=== PATIENT | female | born 1985 | race Caucasian/White ===

== ENCOUNTER 2016-10-27 18:43 | Outpatient (CLI) | payer MEDICAID ==
[~2016-10-27] VITALS: Ht 157.5 cm; Wt 74.0 kg
[2016-10-27 19:05] VITALS: BP 121/64; PULSE 67; Ht 157.5 cm; Wt 74.0 kg
[2016-10-27] MEDS ORDERED: PRENAT PO (19:07)
--- NOTE | 2016-10-27 20:10 | RADRPT ---
PROCEDURE: US OB biophysical profile. CLINICAL INDICATION: decreased movements, PTL TECHNIQUE: Multiple sonographic images of the pelvis were obtained. The images were reviewed on a PACS workstation. COMPARISON: No prior studies are available for comparison. FINDINGS: There is a single viable intrauterine gestation. Cardiac activity is present with 144 beats per min [place]. There is a vertex presentation. The placenta is anterior. There is no evidence of placental abruption. There is a normal amount of amniotic fluid with an ROXANNE = 15.8 cm. Biophysical profile: movement 2/2 tone 2/2. breathing 2/2 ROXANNE 2/2 Total 01/04 RPTAT: AA . IMPRESSION: Normal biophysical profile. . .Abdirashid Martines MD, Date Time Electronically viewed and signed by .Abdirashid Martines MD, MD on 10/27/2016 20:10 .S/
--- NOTE | 2016-10-27 20:15 | RADRPT ---
PROCEDURE: US OB AND ULTRASOUND CERVIX. CLINICAL INDICATION: Size and dates , PTL TECHNIQUE: Multiple sonographic images of the pelvis and gravid uterus were obtained. The images were reviewed on a PACS workstation. Transvaginal images of the cervix were also obtained. COMPARISON: No prior studies are available for comparison. FINDINGS: The cervix has a length of 3.6 cm. There is a small amount of fluid within the cervix. There is a single viable intrauterine gestation. Cardiac activity is present with 142 beats per min [place]. There is a vertex presentation. The placenta is anterior. There is no evidence for an abruption or placenta previa. Measurements were made in order to determine age. The results are as follows: BPD =8.2 cm HC =30.4 cm AC =30.6 cm FL =6.4 cm Estimated gestational age of approximately 33 weeks and 4 days based on ultrasound measurements. Clinical age: 33 weeks and 0 days. The estimated date of delivery is 12/11/2016, based on ultrasound measurements. The EFW = 2305 g, 70%, based on LMP age. RPTAT: AA IMPRESSION: Single viable intrauterine gestation of approximately 33 weeks and 4 days based on ultrasound measu rements. Cervix has a length of 3.6 cm with a small amount of fluid within it. .Abdirashid Martines MD, Date Time Electronically viewed and signed by .Abdirashid Martines MD, MD on 10/27/2016 20:15 .S/
[2016-10-27 20:38] LABS: ADD UMIC YES; URINE BILIRUBIN (Dip) NEGATIVE (NEGATIVE); URINE BLOOD (Dip) TRACE (NEGATIVE); URINE COLOR LT. YELLOW (YELLOW); URINE GLUCOSE (Dip) NEGATIVE (NEGATIVE); URINE KETONES (Dip) NEGATIVE (NEGATIVE); URINE LEUKOCYTE ESTERASE (Dip) 3+ (NEGATIVE); URINE NITRITE (Dip) NEGATIVE (NEGATIVE); URINE TOTAL PROTEIN (Dip) NEGATIVE (NEGATIVE); URINE UROBILINOGEN (Dip) 0.2 E.U./dL (0.1-1.0)
[2016-10-27 20:51] LABS: SQUAMOUS EPITHELIAL CELL,UR MANY; URINE RBCS 0-2 /HPF (0)
--- NOTE | 2016-10-27 21:51 | QN ---
Documentation Comment OB TRUAGE 31 y/o at 33 weeks with c/o decreased movement. Patient denies any pain, leakage of fluid or vaginal bleeding. Afebrile VSS NST Category I BPP 01/04 cervical length 3.6 D/C home. FRANCISCO JAVIER NELSON MD October 27, 2016 21:51
--- NOTE | 2016-10-27 22:50 | TRIAGE ---
OB Triage Datetime Report Generated by CPN: 10/27/2016 22:50 Datetime: 10/27/2016 19:02 Stage of : OB Triage Assessment Type: Triage Maternal Assessment Level of Consciousness: Fully Conscious DTR's/Clonus: DTRs 2+; No Clonus Headache: Denies Blurred Vision: No Respiratory Effort: Unlabored; Regular Rhythm; Equal Expansion Breath Sounds, Left: Clear and Equal Breath Sounds, Right: Clear and Equal Nausea/Vomiting: Denies RUQ Epigastric Pain: Denies Facial Edema: None Temperature Route: Axillary Fall Risk Assessment History of Falling: (0) No Secondary Diagnosis: (0) No Ambulatory Aid: (0) Bedrest/Nurse Assist IV Therapy: (0) No Gait: (0) Normal/Bedrest/Immobile Mental Status: (0) Oriented to Own Ability Fall Score: 0 Fall Risk Score Definition: No Risk: No action required Labor Evaluation Frequency: X2 Monitor Mode: External Duration (sec)2399: 50-100 Quality: Mild Pattern: Normal: <= 5 Contractions in 10 Minutes Resting Tone [place]: Relaxed Contraction Comments: DENIES FEELING Heart Rate FHR Baseline Rate: 135 Monitor Mode: External US Variability: Moderate 6-25 bpm Decelerations: None Pain Assessment Pain Scale: 0 Pain Presence: None/Denies Pain Goal: 3 Pain Relief Measures: Comfort Measures Datetime: 10/27/2016 19:00 Time of Arrival: 10/27/2016 18:35 EGA: 33.0 Arrived By: Ambulatory Arrived From: Home Chief Complaint: C/O DFM SINCE YESTERDAY, DENIES BLEEDING, LEAKING OF FLUID OR UC'S Movement: Decreased Contractions: Denies/Absent Rupture of Membranes: Denies Vaginal Bleeding: None Vaginal Discharge: Denies Recent Sexual Intercouse: Denies Abdominal Trauma: Not Applicable Patient Complaints: None Time Provider Notified: 10/27/2016 19:35 Provider Notified: Dr Jackson Initial Plan: MONITOR, BPP/ROXANNE
== END 2016-10-27 21:55 | disposition home or self-care (01) ==
LOC: OBT 18:43 → L-D 18:44 → OBT 21:55
PROVIDERS: ATTEND Obstetrics & Gynecology
DX: O36.8130 Decreased fetal movements, third trimester, not applicable or unspecified (principal); Z3A.30 30 weeks gestation of pregnancy
CPT/HCPCS: 76815; 76817; 76818; 81001; Z7500; G0463

== ENCOUNTER 2016-12-05 09:13 | Outpatient (CLI) | payer MEDICAID ==
[~2016-12-05] VITALS: Ht 154.9 cm; Wt 76.0 kg
[~2016-12-05 09:13] MED LIST: PRENAT PO
[2016-12-05 09:25] VITALS: BP 119/66; PULSE 78; RESP 16; Ht 154.9 cm; Wt 76.0 kg
--- NOTE | 2016-12-05 11:04 | RADRPT ---
PROCEDURE: OB ultrasound for biophysical profile CLINICAL INDICATION: . TECHNIQUE: Multiple sonographic images of the pelvis were obtained. Transabdominal view of the gr avid uterus are available for review. The images were reviewed on a PACS workstation. COMPARISON: 10/27/2016 FINDINGS: breathing movement = 2/2 tone = 2/2 motion = 2/2 ROXANNE = 2/2 ROXANNE = 11.1 cm Single live intrauterine with cardiac activity. Heart rate equals 161 bpm. IMPRESSION: 1. Single viable intrauterine gestation. 2. Biophysical profile = 8/8. 3. ROXANNE = 11.1 cm. RPTAT: QQ .David Nichols MD, Date Time Electronically viewed and signed by .David Nichols MD, on 12/05/2016 11:04 .Cam/
--- NOTE | 2016-12-05 15:28 | QN ---
Documentation Comment 31 y/o LAURENT 12/15/2016 with decreased movement. Afebrile VSS NST Category I BPP 01/04 Stable D/C home Follow up NST and BPP on 12/06/2016. kick count. FRANCISCO JAVIER NELSON MD Dec 05, 2016 15:28
== END 2016-12-05 16:00 | disposition home or self-care (01) ==
LOC: OBT 09:13 → L-D 09:14 → OBT 16:00
PROVIDERS: ATTEND Obstetrics & Gynecology
DX: O36.8130 Decreased fetal movements, third trimester, not applicable or unspecified (principal); Z3A.32 32 weeks gestation of pregnancy
CPT/HCPCS: 76818; Z7500; G0463

== ENCOUNTER 2016-12-06 14:46 | Outpatient (CLI) | payer MEDICAID ==
[~2016-12-06] VITALS: Ht 154.9 cm; Wt 78.9 kg
[2016-12-06 15:20] VITALS: BP 119/74; PULSE 75; Ht 154.9 cm; Wt 78.9 kg
--- NOTE | 2016-12-06 15:40 | RADRPT ---
PROCEDURE: US OB biophysical profile. CLINICAL INDICATION: evaluation TECHNIQUE: Multiple sonographic images of the pelvis were obtained. The images were reviewed on a PACS workstation. COMPARISON: No prior studies are available for comparison. FINDINGS: There is a single viable intrauterine gestation. Cardiac activity is present with 139 beats per min [place]. There is a vertex presentation. The placenta is anterior. There is no evidence of placental abruption. There is a normal amount of amniotic fluid with an ROXANNE = 12.4 cm. Biophysical profile: movement 2/2 tone 2/2. breathing 2/2 ROXANNE 2/2 Total 01/04 RPTAT: AA . IMPRESSION: Normal biophysical profile. Physician Reece Date Time Electronically viewed and signed by Physician Reece on 12/06/2016 15:40 /
--- NOTE | 2016-12-06 17:23 | QN ---
Documentation Comment g1 iup 36 weeks dfm vss us wnl nst reactive a/p iup 38 weeks dmf fu with obgyn GISSELLE Hinkle MD Dec 06, 2016 17:23
== END 2016-12-06 17:15 | disposition home or self-care (01) ==
LOC: OBT 14:46 → L-D 14:46 → OBT 17:15
PROVIDERS: ATTEND Obstetrics & Gynecology
DX: O36.8130 Decreased fetal movements, third trimester, not applicable or unspecified (principal); Z3A.38 38 weeks gestation of pregnancy
CPT/HCPCS: 76818; Z7500; G0463

== ENCOUNTER 2016-12-09 09:40 | Inpatient (IN) | payer MEDICAID ==
[~2016-12-09] VITALS: Ht 157.5 cm; Wt 75.7 kg
[2016-12-09 09:53] VITALS: Ht 157.5 cm; Wt 75.7 kg
[2016-12-09 09:54] VITALS: BP 124/64; PULSE 83; RESP 18
--- NOTE | 2016-12-09 10:55 | RADRPT ---
PROCEDURE: OB ultrasound for biophysical profile CLINICAL INDICATION: Decreased movement TECHNIQUE: Multiple sonographic images of the pelvis were obtained. Transabdominal views of the g ravid uterus are available for review. The images were reviewed on a PACS workstation. COMPARISON: Biophysical profile dated 12/06/2016 FINDINGS: breathing movement = 2/2 tone = 2/2 motion = 2/2 ROXANNE = 2/2 ROXANNE = 9.7 cm Single live intrauterine with cardiac activity of 166 bpm. position is cephal ic. The placenta is anterior. IMPRESSION: 1. Single live intrauterine gestation. 2. Biophysical profile = 8. 3. ROXANNE = 9.7 cm. RPTAT: HH .Blessing Sena MD, Date Time Electronically viewed and signed by .Blessing Sena MD, on 12/09/2016 10:55 .G/
[2016-12-09] MEDS ORDERED: IBUPROFEN 600 MG TAB PO PRN (11:30)
[2016-12-09] MEDS ORDERED: MISOPROSTOL 200 MCG TAB PR PRN (11:30)
[2016-12-09] MEDS ORDERED: CARBOPROST 250 MCG INJ IM PRN (11:30)
[2016-12-09] MEDS ORDERED: METHYLERGONOVINE 0.2 MG INJ IM PRN (11:30)
[2016-12-09] MEDS ORDERED: OXYTOCIN 30 UNITS/LR 500 ML IV PRN (11:30)
[2016-12-09] MEDS ORDERED: BUTORPHANOL 2 MG INJ IV PRN (11:30)
[2016-12-09] MEDS ORDERED: LIDOCAINE 1% (MPF) 30 ML INJ INJ PRN (11:30)
[2016-12-09] MEDS ORDERED: LACTATED RINGER'S 1,000 ML IV PRN (11:30)
[2016-12-09] MEDS ORDERED: OXYTOCIN 30 UNITS/LR 500 ML IV SCH ×2 (11:30)
--- NOTE | 2016-12-09 11:34 | TRIAGE ---
OB Triage Datetime Report Generated by CPN: 12/09/2016 11:33 Datetime: 12/09/2016 11:14 Contraction Comments: PT. DENIES FEELING UC'S Heart Rate FHR Baseline Rate: 145 Monitor Mode: External US Variability: Moderate 6-25 bpm Accelerations: 15X15 Decelerations: None Category: Category I Pain Presence: None/Denies Datetime: 12/09/2016 11:13 Labor Evaluation Frequency: IRREG Monitor Mode: External Duration (sec)2399: 50-90 Pattern: Normal: <= 5 Contractions in 10 Minutes Resting Tone [place]: Relaxed Datetime: 12/09/2016 10:14 Labor Evaluation Frequency: IRREG Monitor Mode: External Duration (sec)2399: 30-90 Pattern: Normal: <= 5 Contractions in 10 Minutes Resting Tone [place]: Relaxed Contraction Comments: PT. DENIES FEELING UC'S Heart Rate FHR Baseline Rate: 140 Monitor Mode: External US Variability: Moderate 6-25 bpm Accelerations: 15X15 Decelerations: Variable Category: Category II Datetime: 12/09/2016 10:00 Assessment Type: Admission Assessment Maternal Assessment Level of Consciousness: Fully Conscious DTR's/Clonus: DTRs 2+; No Clonus Headache: Denies Blurred Vision: No Respiratory Effort: Unlabored; Regular Rhythm; Equal Expansion Breath Sounds, Left: Clear and Equal Breath Sounds, Right: Clear and Equal Nausea/Vomiting: Denies RUQ Epigastric Pain: Denies Lower Extremities Edema: None Degree: None Upper Extremities Edema: None Degree: None Facial Edema: None Fall Risk Assessment History of Falling: (0) No Secondary Diagnosis: (0) No Ambulatory Aid: (0) Bedrest/Nurse Assist IV Therapy: (0) No Gait: (0) Normal/Bedrest/Immobile Mental Status: (0) Oriented to Own Ability Fall Score: 0 Fall Risk Score Definition: No Risk: No action required Datetime: 12/09/2016 09:47 Pain Presence: None/Denies Datetime: 12/09/2016 09:45 Time of Arrival: 12/09/2016 09:30 EGA: 39.1 Arrived By: Ambulatory Arrived From: Office Chief Complaint: DECREASED MOVEMENT SINCE 629. PT. HERE W/ 'S NOTE FOR NSR AND BPP DUE T O MARGINAL CORD INSERTION. Movement: Decreased Contractions: Occasional Rupture of Membranes: Denies Vaginal Bleeding: None Vaginal Discharge: Denies Recent Sexual Intercouse: Denies Abdominal Trauma: Not Applicable Patient Complaints: None Time Provider Notified: 12/09/2016 11:20 Provider Notified: DR NELSON Initial Plan: TOCO/US, BPP Datetime: 12/06/2016 17:03 Stage of : OB Triage Datetime: 12/06/2016 16:53 Stage of : OB Triage Datetime: 12/06/2016 16:47 Vaginal Exam Dilatation (cms): 0.0 Exam By: s saqib Vaginal Bleeding: None Cervix, Consistency: Soft Cervix, Position: Posterior Presentation 'A': Cephalic Datetime: 12/06/2016 16:11 Labor Evaluation Frequency: 2-5 Monitor Mode: External Duration (sec)2399: 40-60 Quality: Mild Pattern: Normal: <= 5 Contractions in 10 Minutes Resting Tone [place]: Relaxed Heart Rate FHR Baseline Rate: 140 Monitor Mode: External US Variability: Moderate 6-25 bpm Accelerations: 10X10 Decelerations: None Category: Category I Pain Assessment Pain Scale: 0 Pain Presence: None/Denies Pain Type: N/A Pain Goal: 3 Pain Relief Measures: Comfort Measures Datetime: 12/06/2016 15:48 Stage of : OB Triage Datetime: 12/06/2016 15:09 Stage of : OB Triage Assessment Type: Triage Maternal Assessment Level of Consciousness: Fully Conscious DTR's/Clonus: DTRs 2+; No Clonus Headache: Denies Blurred Vision: No Respiratory Effort: Unlabored; Regular Rhythm; Equal Expansion Breath Sounds, Left: Clear and Equal Breath Sounds, Right: Clear and Equal Nausea/Vomiting: Denies RUQ Epigastric Pain: Denies Facial Edema: None Temperature Route: Axillary Fall Risk Assessment History of Falling: (0) No Secondary Diagnosis: (0) No Ambulatory Aid: (0) Bedrest/Nurse Assist IV Therapy: (0) No Gait: (0) Normal/Bedrest/Immobile Mental Status: (0) Oriented to Own Ability Fall Score: 0 Fall Risk Score Definition: No Risk: No action required Labor Evaluation Frequency: 0 Monitor Mode: External Resting Tone [place]: Relaxed Heart Rate FHR Baseline Rate: 150 Monitor Mode: External US Variability: Moderate 6-25 bpm Decelerations: None Category: Category I Pain Assessment Pain Scale: 0 Pain Presence: None/Denies Pain Type: N/A Pain Goal: 3 Pain Relief Measures: Comfort Measures Datetime: 12/06/2016 15:08 Time of Arrival: 12/06/2016 14:45 EGA: 38.5 Arrived By: Ambulatory Arrived From: Home Chief Complaint: FOLLOW UP DFM Movement: Decreased Contractions: Denies/Absent Rupture of Membranes: Denies Vaginal Bleeding: None Vaginal Discharge: Denies Recent Sexual Intercouse: Denies Abdominal Trauma: Not Applicable Time Provider Notified: 12/06/2016 16:53 Provider Notified: DELSHAD Initial Plan: MONITOR, BPP/ROXANNE Datetime: 12/05/2016 15:28 Labor Evaluation Frequency: 2-6 Monitor Mode: External Duration (sec)2399: 50-90 Pattern: Normal: <= 5 Contractions in 10 Minutes Resting Tone [place]: Relaxed Heart Rate FHR Baseline Rate: 135 Monitor Mode: External US Variability: Moderate 6-25 bpm Accelerations: 15X15 Decelerations: None Category: Category I Pain Presence: None/Denies Pain Type: N/A Datetime: 12/05/2016 15:00 Labor Evaluation Frequency: irreg Duration (sec)2399: 50-80 Quality: Mild Pattern: Normal: <= 5 Contractions in 10 Minutes Resting Tone [place]: Relaxed Heart Rate FHR Baseline Rate: 145 Monitor Mode: External US Variability: Minimal - Undetectable to <=5 bpm Accelerations: 15X15 Decelerations: None Category: Category II Pain Presence: None/Denies Pain Type: N/A Datetime: 12/05/2016 14:29 Labor Evaluation Frequency: 1-6 Monitor Mode: External Duration (sec)2399: 50-70 Quality: Mild Pattern: Normal: <= 5 Contractions in 10 Minutes Resting Tone [place]: Relaxed Heart Rate FHR Baseline Rate: 145 Monitor Mode: External US Variability: Moderate 6-25 bpm Accelerations: 15X15 Decelerations: None Category: Category I Pain Presence: None/Denies Pain Type: N/A Datetime: 12/05/2016 14:01 Labor Evaluation Frequency: irreg Monitor Mode: External Duration (sec)2399: 50-60 Quality: Mild Pattern: Normal: <= 5 Contractions in 10 Minutes Resting Tone [place]: Relaxed Heart Rate FHR Baseline Rate: 135 Monitor Mode: External US Variability: Moderate 6-25 bpm Accelerations: 15X15 Decelerations: None Category: Category I Pain Presence: None/Denies Pain Type: N/A Datetime: 12/05/2016 13:01 Labor Evaluation Frequency: 2-7 Monitor Mode: External Duration (sec)2399: 60-80 Quality: Mild Pattern: Normal: <= 5 Contractions in 10 Minutes Resting Tone [place]: Relaxed Heart Rate FHR Baseline Rate: 145 Monitor Mode: External US Variability: Moderate 6-25 bpm Accelerations: 15X15 Decelerations: Variable Category: Category II Pain Presence: None/Denies Pain Type: N/A Datetime: 12/05/2016 12:01 Labor Evaluation Frequency: irreg Monitor Mode: External Duration (sec)2399: 60-90 Quality: Mild Pattern: Normal: <= 5 Contractions in 10 Minutes Resting Tone [place]: Relaxed Heart Rate FHR Baseline Rate: 145 Monitor Mode: External US Variability: Moderate 6-25 bpm Accelerations: 15X15 Decelerations: None Category: Category I Pain Presence: None/Denies Pain Type: N/A Vaginal Exam Dilatation (cms): 0.0 Exam By: wliu Datetime: 12/05/2016 11:00 Labor Evaluation Frequency: irreg Monitor Mode: External Duration (sec)2399: 60-80 Quality: Mild Pattern: Normal: <= 5 Contractions in 10 Minutes Resting Tone [place]: Relaxed Heart Rate FHR Baseline Rate: 150 Monitor Mode: External US Variability: Moderate 6-25 bpm Accelerations: 15X15 Decelerations: None Category: Category I Pain Presence: None/Denies Pain Type: N/A Datetime: 12/05/2016 10:15 Labor Evaluation Frequency: 5-9 Monitor Mode: External Duration (sec)2399: 60-120 Quality: Mild Pattern: Normal: <= 5 Contractions in 10 Minutes Resting Tone [place]: Relaxed Heart Rate FHR Baseline Rate: 145 Monitor Mode: External US Variability: Moderate 6-25 bpm Accelerations: 15X15 Decelerations: None Category: Category I Pain Presence: None/Denies Pain Type: N/A Datetime: 12/05/2016 09:24 Maternal Assessment Level of Consciousness: Fully Conscious DTR's/Clonus: DTRs 2+; No Clonus Headache: Denies Blurred Vision: No Respiratory Effort: Unlabored; Regular Rhythm; Equal Expansion Breath Sounds, Left: Clear and Equal Breath Sounds, Right: Clear and Equal Nausea/Vomiting: Denies RUQ Epigastric Pain: Denies Facial Edema: None Temperature Route: Axillary Fall Risk Assessment History of Falling: (0) No Secondary Diagnosis: (0) No Ambulatory Aid: (0) Bedrest/Nurse Assist IV Therapy: (0) No Gait: (0) Normal/Bedrest/Immobile Mental Status: (0) Oriented to Own Ability Fall Score: 0 Fall Risk Score Definition: No Risk: No action required Datetime: 12/05/2016 09:23 Time of Arrival: 12/05/2016 09:05 EGA: 38.4 Arrived By: Ambulatory Arrived From: Home Chief Complaint: Pt. came to hospital c/o decreased fm Movement: Decreased Contractions: Irregular Rupture of Membranes: Denies Vaginal Bleeding: None Vaginal Discharge: Denies Recent Sexual Intercouse: Denies Abdominal Trauma: Not Applicable Patient Complaints: Other Time Provider Notified: 11/28/2016 09:25 Provider Notified: Initial Plan: u/s for bpp Datetime: 10/27/2016 21:49 Stage of : OB Triage Labor Evaluation Frequency: 2-5 Monitor Mode: External Duration (sec)2399: 60 Quality: Mild Pattern: Normal: <= 5 Contractions in 10 Minutes Resting Tone [place]: Relaxed Contraction Comments: Pt denies feeling ucs Heart Rate FHR Baseline Rate: 145 Monitor Mode: External US FHR Baseline Changes: No Baseline Change Variability: Moderate 6-25 bpm Accelerations: 15X15 Decelerations: None Category: Category I Pain Assessment Pain Scale: 0 Pain Presence: None/Denies Pain Type: N/A Datetime: 10/27/2016 21:00 Stage of : OB Triage Labor Evaluation Frequency: 2-4 Monitor Mode: External Duration (sec)2399: 60 Quality: Mild Pattern: Normal: <= 5 Contractions in 10 Minutes Resting Tone [place]: Relaxed Heart Rate FHR Baseline Rate: 140 Monitor Mode: External US FHR Baseline Changes: No Baseline Change Variability: Moderate 6-25 bpm Accelerations: 15X15 Datetime: 10/27/2016 20:04 Stage of : OB Triage Heart Rate FHR Baseline Rate: 150 Monitor Mode: External US Variability: Moderate 6-25 bpm Accelerations: 15X15 Decelerations: None Datetime: 10/27/2016 19:35 Stage of : OB Triage Labor Evaluation Frequency: 2-5 Monitor Mode: External Duration (sec)2399: 60-90 Quality: Mild Pattern: Normal: <= 5 Contractions in 10 Minutes Resting Tone [place]: Relaxed Contraction Comments: Pt denied feeling ucs Heart Rate FHR Baseline Rate: 140 Monitor Mode: External US FHR Baseline Changes: No Baseline Change Variability: Moderate 6-25 bpm Accelerations: 15X15 Decelerations: None Category: Category I Pain Assessment Pain Scale: 0 Pain Presence: None/Denies Pain Type: N/A Pain Location: Abdomen Datetime: 10/27/2016 19:02 Fall Score: 0 Fall Risk Score Definition: No Risk: No action required Datetime: 10/27/2016 19:00 EGA: 33.0
[2016-12-09] MEDS: LACTATED RINGER'S 1,000 ML IV SCH ×2 (11:55→20:19)
[2016-12-09 12:08] LABS: ADD SCAN DIFF NO
[2016-12-09 12:13] LABS: BASOPHILS % 0.3 % (0.0-2.0); EOSINOPHILS # 0.2 10^3/ul (0.0-0.5); EOSINOPHILS % 1.4 % (0.0-7.0); HEMATOCRIT 36.8 % (37.0-47.0); HEMOGLOBIN 12.4 g/dl (12.0-16.0); LYMPHOCYTES # 1.6 10^3/ul (0.8-2.9); LYMPHOCYTES % 13.4 % (15.0-51.0); MEAN CORPUSCULAR HEMOGLOBIN 30.1 pg (29.0-33.0); MEAN CORPUSCULAR HGB CONC 33.7 g/dl (32.0-37.0); MEAN CORPUSCULAR VOLUME 89.3 fl (82.0-101.0); MEAN PLATELET VOLUME 10.1 fl (7.4-10.4); MONOCYTE # 0.7 10^3/ul (0.3-0.9); MONOCYTES % 5.9 % (0.0-11.0); NEUTROPHIL # 9.2 10^3/ul (1.6-7.5); NEUTROPHILS % 78.6 % (39.0-77.0); PLATELET COUNT 260 10^3/UL (140-415); RED BLOOD COUNT 4.12 10^6/ul (4.20-5.40); RED CELL DISTRIBUTION WIDTH 13.1 % (11.5-14.5); WHITE BLOOD COUNT 11.8 10^3/ul (4.8-10.8)
--- NOTE | 2016-12-09 12:13 | RADRPT ---
PROCEDURE: Obstetrical ultrasound CLINICAL INDICATION: DFM TECHNIQUE: Multiple sonographic images of the pelvis were obtained. The images were reviewed on a PACS workstation. COMPARISON: None FINDINGS: The cervix is not well visualized. There is a single viable intrauterine gestation. Cardiac activity is present with 141 beats per minute. There is a vertex presentation. The placenta is anterior. There is no evidence for an abruption or placenta previa. There is a subjectively normal amount of amniotic fluid. Measurements were made in order to determine age. The results are as follows (cm): BPD =9.29 HC =31.40 AC =38.02 FL =7.41 Estimated gestational age by ultrasound of approximately 36 weeks, 6 days. The estimated date of delivery by ultrasound is 12/31/2016. Estimated gestational age by LMP of approximately 39 weeks, 1 day. The estimated date of delivery by LMP is 12/15/2016. EFW = 3190 grams (83rd percentile) IMPRESSION: Single viable intrauterine gestation of approximately 36 weeks, 6 days . The estimated date of delivery is 12/31/2016 . Dating by ultrasound is within 16 days of dating by LMP. Cephalic presentation. Estimated weight is in the 83rd percentile. RPTAT: EE Physician Reece Date Time Electronically viewed and signed by Physician Reece on 12/09/2016 12:13 CAREN
[2016-12-09 12:34] LABS: INR 0.84; PARTIAL THROMBOPLASTIN TIME 26.5 Sec (25.0-35.0); PROTIME 11.5 Sec (12.2-14.2); PT RATIO 0.9
[2016-12-09 13:00] LABS: ALBUMIN 4.5 g/dl (3.3-4.9); ALBUMIN/GLOBULIN RATIO 1.32; BILIRUBIN,INDIRECT 0.1 mg/dl (0-1.1); BILIRUBIN,TOTAL 0.1 mg/dl (0.2-1.3); CALCIUM 10.4 mg/dl (8.4-10.2); CREATININE 0.54 mg/dl (0.44-1.00); TOTAL PROTEIN 7.9 g/dl (6.1-8.1); URIC ACID 3.6 mg/dl (3.1-7.9)
[2016-12-09] MEDS: MISOPROSTOL 25 MCG CAPSULE PO SCH ×3 (13:54→22:00)
[2016-12-09 17:02] LABS: ADD UMIC YES; UR ASCORBIC ACID NEGATIVE (NEGATIVE); UR BACTERIA FEW /HPF (NONE SEEN); UR BILIRUBIN (Dip) NEGATIVE (NEGATIVE); UR BLOOD (Dip) NEGATIVE (NEGATIVE); UR BUDDING YEAST FEW /HPF (NONE SEEN); UR CLARITY CLOUDY (CLEAR); UR COLOR YELLOW (YELLOW); UR GLUCOSE (Dip) NEGATIVE (NEGATIVE); UR KETONES (Dip) TRACE mg/dL (NEGATIVE); UR LEUKOCYTE ESTERASE (Dip) 3+ Leu/ul (NEGATIVE); UR MUCUS FEW /HPF (NONE SEEN); UR NITRITE (Dip) NEGATIVE (NEGATIVE); UR RBC 0 /HPF (0-5); UR SPECIFIC GRAVITY (Dip) 1.008 (1.003-1.030); UR SQUAMOUS EPITHELIAL CELL MANY /HPF (FEW); UR TOTAL PROTEIN (Dip) NEGATIVE (NEGATIVE); UR UROBILINOGEN (Dip) NEGATIVE (NEGATIVE)
--- NOTE | 2016-12-09 19:44 | HP ---
Date/Time of Note Date/Time of Note DATE: 12/09/16 TIME: 19:41 OB - History Hx of Present Chief Complaint: Antepartum Testing Estimated Due Date: Dec 14, 2016 : 1 Para: 0 Spontaneous : 0 Therapeutic : 0 Care: Good Care Ultrasounds: Other (Marginal cord insertion) Obstetrical Complications: None Past Family/Social History * Past Medical, Surgical, Family and Obstetric Histories reviewed from chart. GBS Status: Negative OB Admission Exam Vital Signs Vital Signs Vital Signs Date Time Temp Pulse Resp B/P Pulse Ox O2 Delivery O2 Flow Rate FiO2 12/09/16 09:54 98.6 83 18 124/64 Room Air Physical Exam HEENT: WNL Heart: Rhythm Normal Lungs: Clear Abdomen: WNL Extremities: Normal Reflexes: Normal Cervical Dilatation: 1cm Effacement: 50% Station: -1 Membranes: Intact Heart Rate: 130's Accelerations: Accelerations Present Decelerations: No Decelerations Varibility: Moderate Last 72 hours Lab Results CBC & BMP 12/09/16 11:55 Liver Function Test 12/09/16 11:55 Alanine Aminotransferase (ALT/SGPT) 20 Albumin 4.5 Alkaline Phosphatase 198 H Aspartate Amino Transf (AST/SGOT) 21 Direct Bilirubin 0.00 Total Protein 7.9 OB Assessment/Plan Reason for admission: induction of labor Induction Method: per Misoprostol Protocol FRANCISCO JAVIER NELSON MD Dec 09, 2016 19:44
[2016-12-10] MEDS: MISOPROSTOL 25 MCG CAPSULE PO SCH ×4 (00:06→12:57)
[2016-12-10] MEDS: LACTATED RINGER'S 1,000 ML IV SCH ×3 (02:22→17:43)
[2016-12-10] MEDS ORDERED: FENTAnyl 2MCG/ML-ROPIV 0.2% 100 ML ONE (21:33)
[2016-12-10] MEDS ORDERED: NALOXONE (0.4 MG/ML) INJ IV PRN (22:00)
[2016-12-11] MEDS: FENTAnyl 2MCG/ML-ROPIV 0.2% 100 ML BAG EPI SCH ×3 (02:51→13:52)
[2016-12-11] MEDS: LACTATED RINGER'S 1,000 ML IV SCH ×3 (02:54→10:53)
--- NOTE | 2016-12-11 18:30 | LDN ---
Date/Time of Note Date/Time of Note DATE: 12/11/16 TIME: 18:27 Delivery Summary Weeks of Gestation 39 weeks and 3 days Placenta Delivered: Spontaneously Meconium: Light Episiotomy: No Perineal laceration: 1 Laceration repair: Second degree laceration repaired with 3-0 Vicryl. Anesthesia type: Epidural Estimated blood loss: 200 Sponge & Needle done & correct: Yes All needle counts correct: Yes Any foreign bodies felt in the: No Problems: Infant Delivery Information Sex Sex: female Apgars 1 Minute: 8 5 Minute: 9 Suctioning Nose & mouth suctioned at [place]: Yes Delee suction performed: No Umbilical Cord Umbilical cord with: 3 Vessels Cord presentations: no nuchal cord Cord Blood was obtained: Yes Mother & Baby Disposition Disposition Mom & Baby to Maternity; Good: Yes FRANCISCO JAVIER NELSON MD Dec 11, 2016 18:30
[2016-12-11 21:05] VITALS: BP 123/69; PULSE 79; RESP 18
[2016-12-11] MEDS ORDERED: WITCH HAZEL/GLYCERIN PAD PR PRN (21:30)
[2016-12-11] MEDS ORDERED: METHYLERGONOVINE 0.2 MG INJ IM PRN (21:30)
[2016-12-11] MEDS ORDERED: OXYTOCIN 30 UNITS/LR 500 ML IV PRN (21:30)
[2016-12-11] MEDS ORDERED: MISOPROSTOL 200 MCG TAB PR PRN (21:30)
[2016-12-11] MEDS ORDERED: CARBOPROST 250 MCG INJ IM PRN (21:30)
[2016-12-11] MEDS ORDERED: BENZOCAINE 20% 56 ML SPRAY TOP PRN (21:30)
[2016-12-11] MEDS ORDERED: DIBUCAINE 1% 30 GM OINT PR PRN (21:30)
[2016-12-11] MEDS ORDERED: ACETAMINOPHEN 325 MG TAB PO PRN (21:30)
[2016-12-11] MEDS ORDERED: ACETAMINOPHEN/CODEINE #3 TAB PO PRN (21:30)
[2016-12-11 23:30] VITALS: BP 117/53; PULSE 80; RESP 18
[2016-12-11] MEDS: IBUPROFEN 600 MG TAB PO SCH (23:45)
[2016-12-12 03:45] VITALS: BP 102/70; PULSE 70; RESP 18
[2016-12-12 04:00] VITALS: BP 114/67; PULSE 77; RESP 18
[2016-12-12] MEDS: LACTATED RINGER'S 1,000 ML IV* SCH ×2 (04:05→08:57)
[2016-12-12] MEDS: IBUPROFEN 600 MG TAB PO SCH ×3 (05:44→17:32)
[2016-12-12 08:28] LABS: ADD SCAN DIFF NO
[2016-12-12 08:30] VITALS: BP 106/58; PULSE 89; RESP 18
[2016-12-12 08:38] LABS: BASOPHILS % 0.2 % (0.0-2.0); EOSINOPHILS % 0.1 % (0.0-7.0); HEMATOCRIT 27.6 % (37.0-47.0); HEMOGLOBIN 9.3 g/dl (12.0-16.0); LYMPHOCYTES # 1.6 10^3/ul (0.8-2.9); MEAN CORPUSCULAR HEMOGLOBIN 30.4 pg (29.0-33.0); MEAN CORPUSCULAR HGB CONC 33.7 g/dl (32.0-37.0); MEAN CORPUSCULAR VOLUME 90.2 fl (82.0-101.0); MEAN PLATELET VOLUME 10.8 fl (7.4-10.4); MONOCYTE # 1.1 10^3/ul (0.3-0.9); MONOCYTES % 6.7 % (0.0-11.0); NEUTROPHIL # 13.2 10^3/ul (1.6-7.5); NEUTROPHILS % 82.5 % (39.0-77.0); PLATELET COUNT 210 10^3/UL (140-415); RED BLOOD COUNT 3.06 10^6/ul (4.20-5.40); RED CELL DISTRIBUTION WIDTH 13.4 % (11.5-14.5)
[2016-12-12] MEDS: SENNA/DOCUSATE NA (8.6MG/50MG) TAB PO SCH ×2 (08:57→20:48)
[2016-12-12] MEDS: LACTATED RINGER'S 1,000 ML IV SCH ×2 (08:57→11:30)
[2016-12-12 16:30] VITALS: BP 117/69; PULSE 89; RESP 18
[2016-12-12 19:45] VITALS: BP 126/73; PULSE 73; RESP 16
--- NOTE | 2016-12-12 20:08 | QN ---
Documentation Comment No complaint Afebrile VSS Fundus Firm Lochia scant PPD #1 Stable Continue present care. FRANCISCO JAVIER NELSON MD Dec 12, 2016 20:08
[2016-12-12] MEDS: FERROUS SULFATE (EC) 325 MG TAB PO SCH (20:48)
[2016-12-13] MEDS: IBUPROFEN 600 MG TAB PO SCH ×4 (00:32→18:00)
[2016-12-13 03:30] VITALS: BP 105/57; PULSE 65
[2016-12-13 08:08] LABS: ADD SCAN DIFF NO
[2016-12-13 08:14] LABS: BASOPHILS % 0.3 % (0.0-2.0); EOSINOPHILS # 0.2 10^3/ul (0.0-0.5); EOSINOPHILS % 1.4 % (0.0-7.0); HEMATOCRIT 30.1 % (37.0-47.0); LYMPHOCYTES # 1.8 10^3/ul (0.8-2.9); LYMPHOCYTES % 15.8 % (15.0-51.0); MEAN CORPUSCULAR HEMOGLOBIN 30.2 pg (29.0-33.0); MEAN CORPUSCULAR HGB CONC 33.2 g/dl (32.0-37.0); MEAN CORPUSCULAR VOLUME 90.9 fl (82.0-101.0); MEAN PLATELET VOLUME 10.8 fl (7.4-10.4); MONOCYTE # 0.7 10^3/ul (0.3-0.9); MONOCYTES % 5.8 % (0.0-11.0); NEUTROPHIL # 8.8 10^3/ul (1.6-7.5); NEUTROPHILS % 76.1 % (39.0-77.0); PLATELET COUNT 209 10^3/UL (140-415); RED BLOOD COUNT 3.31 10^6/ul (4.20-5.40); RED CELL DISTRIBUTION WIDTH 13.6 % (11.5-14.5); WHITE BLOOD COUNT 11.5 10^3/ul (4.8-10.8)
[2016-12-13 08:15] VITALS: BP 118/68
[2016-12-13] MEDS ORDERED: DIPHTH/TET/ACEL PERTUSS (ADULT) 0.5 ML VIAL IM* ONE (09:00)
[2016-12-13] MEDS: SENNA/DOCUSATE NA (8.6MG/50MG) TAB PO SCH (10:12)
[2016-12-13] MEDS: FERROUS SULFATE (EC) 325 MG TAB PO SCH ×2 (10:12→17:47)
--- NOTE | 2016-12-13 13:59 | DS ---
Date/Time of Note Date/Time of Note DATE: 12/13/16 TIME: 13:59 Obstetrical Discharge Record Final Diagnosis Final Diagnosis: Term delivered Vaginal Delivery Obstetrical Delivery: Spontaneous Condition on Discharge Physical Assessment Voiding: Yes Bowel Movement: Yes Breast: Soft, non-tender Fundus: Firm Calf Tenderness: No Patient Condition: Stable FRANCISCO JAVIER NELSON MD Dec 13, 2016 13:59
== END 2016-12-13 18:45 | disposition home or self-care (01) | DRG 775 ==
LOC: OBT 09:40 → L-D 09:41 → OBT 11:40 → L-D 11:42 → PP1 12-11 21:00
PROVIDERS: ADMIT Obstetrics & Gynecology; ATTEND Obstetrics & Gynecology
PROC: 10E0XZZ Delivery of Products of Conception, External Approach (ICD-10-PCS; principal; 2016-12-11)
PROC: 0HQ9XZZ Repair Perineum Skin, External Approach (ICD-10-PCS; 2016-12-11)
DX: O70.0 First degree perineal laceration during delivery (principal); Z37.0 Single live birth; Z3A.39 39 weeks gestation of pregnancy
CPT/HCPCS: 62319; 76815; 76818; 80053; 81001; 84560; 85025; 85610; 85730; 86592; 86900; 86901; 87340; 90715; 99464; G0463; J2590; J3010; J7120

== ENCOUNTER 2018-12-02 02:46 | Emergency (ER) | payer MEDICAID ==
[~2018-12-02] VITALS: Ht 162.6 cm; Wt 76.1 kg
[2018-12-02 02:48] VITALS: Ht 162.6 cm; Wt 76.1 kg
[2018-12-02] MEDS ORDERED: CARBAMIDE PEROXIDE 6.5% 15ML OTIC LEFT EAR ONE (04:30)
--- NOTE | 2018-12-02 05:49 | ERD ---
ER Documentation Chief Complaint Chief Complaint RIGHT EAR PAIN X 2 DAYS. HPI This is a 33-year-old G3, female at approximately 31 weeks gestation presents to the ED complaining of left ear pain for the past 3 days. Patient reports decreased hearing as well. Denies any fevers or chills. Denies any discharge. Denies any throat pain or neck stiffness. No headache. No other concerns. ROS All systems reviewed and are negative except as per history of present illness. Medications Home Meds Reported Medications Multivit/Min/Fol Ac/Iron/Pren* ( S*) 1 Tab Tab, 1 TAB PO DAILY, TAB 10/27/16 Allergies Allergies: Coded Allergies: No Known Allergy (Unverified , 12/09/16) PMhx/Soc Medical and Surgical Hx: pt denies Medical Hx, pt denies Surgical Hx History of Surgery: No Anesthesia Reaction: No Hx Neurological Disorder: No Hx Respiratory Disorders: No Hx Cardiac Disorders: No Hx Psychiatric Problems: No Hx Miscellaneous Medical Probl: No Hx Alcohol Use: No Hx Substance Use: No Hx Tobacco Use: No Smoking Status: Never smoker Physical Exam Vitals Vital Signs Date Temp Pulse Resp B/P (MAP) Pulse Ox O2 O2 Flow FiO2 Time Delivery Rate 12/02/18 97.9 87 18 140/70 98 02:48 (93) Physical Exam Const: No acute distress Head: Atraumatic Eyes: Normal Conjunctiva ENT: + Cerumen impaction of the left ear, no pain with mid ablation of the tragus or pinna. No postauricular tenderness. Right TM not erythematous, external auditory canal normal. No postauricular tenderness. Neck: Full range of motion. No meningismus. Ext: No cyanosis, or edema Neur: Awake and alert Psych: Normal Mood and Affect Results 24 hrs Current Medications Medications Dose Sig/Maynor Start Time Status Last (Trade) Ordered Route PRN Stop Time Admin Dose Reason Admin Carbamide 2 drop ONCE ONCE 12/02/18 DC 12/02/18 Peroxide LEFT EAR 04:30 12/02/18 04:35 (Debrox Otic) 04:31 Procedures/MDM PROCEDURES: Irrigation of the left ear with hydrogen peroxide and warm water, successful movement of cerumen. MEDICAL DECISION MAKING: This is a 33-year-old female approximately 31 weeks gestation who presents with left ear cerumen impaction. Significant amount of cerumen was removed status post irrigation. Ear canal was examined afterwards, there was no evidence of TM perforation, otitis externa or otitis media. Patient has no fever, vital signs are normal. No evidence of meningitis or any other severe emergent pathology. Patient will be discharged home with PCP follow-up and strict return precautions. PRESCRIPTIONS: [facility] SPECIALIST FOLLOW UP RECOMMENDED: None Patient has been advised to follow up with primary care in 1-2 days. Departure Diagnosis: Primary Impression: Impacted cerumen of left ear Condition: Stable Patient Instructions: Cerumen Impaction, Home Care Referrals: COMMUNITY CLINICS YOU HAVE RECEIVED A MEDICAL SCREENING EXAM AND THE RESULTS INDICATE THAT YOU DO NOT HAVE A CONDITION THAT REQUIRES URGENT TREATMENT IN THE EMERGENCY DEPARTMENT. FURTHER EVALUATION AND TREATMENT OF YOUR CONDITION CAN WAIT UNTIL YOU ARE SEEN IN YOUR DOCTORS OFFICE WITHIN THE NEXT 1-2 DAYS. IT IS YOUR RESPONSIBILITY TO MAKE AN APPOINTMENT FOR FOLOW-UP CARE. IF YOU HAVE A PRIMARY DOCTOR --you should call your primary doctor and schedule an appointment IF YOU DO NOT HAVE A PRIMARY DOCTOR YOU CAN CALL OUR PHYSICIAN REFERRAL HOTLINE AT IF YOU CAN NOT AFFORD TO SEE A PHYSICIAN YOU CAN CHOSE FROM THE FOLLOWING [facility] [address] [facility]. [facility] [address] [facility]. [facility] [address] [facility]. [facility] [address] [facility]. [facility] [address] [facility]. [facility]. [address] [facility]. [facility] YOU HAVE RECEIVED A MEDICAL SCREENING EXAM AND THE RESULTS INDICATE THAT YOU DO NOT HAVE A CONDITION THAT REQUIRES URGENT TREATMENT IN THE EMERGENCY DEPARTMENT. FURTHER EVALUATION AND TREATMENT OF YOUR CONDITION CAN WAIT UNTIL YOU ARE SEEN IN YOUR DOCTORS OFFICE WITHIN THE NEXT 1-2 DAYS. IT IS YOUR RESPONSIBILITY TO MAKE AN APPOINTMENT FOR FOLOW-UP CARE. IF YOU HAVE A PRIMARY DOCTOR --you should call your primary doctor and schedule and appointment IF YOU DO NOT HAVE A PRIMARY DOCTOR YOU CAN CALL OUR PHYSICIAN REFERRAL HOTLINE AT . IF YOU CAN NOT AFFORD TO SEE A PHYSICIAN YOU CAN CHOSE FROM THE FOLLOWING [facility] INSTITUTIONS: [facility] [address] [place] [address] [facility] [address] [place] [address] [facility] [address] [place] [address] Additional Instructions: Paciente aconseja volver a Departamento de urgencias inmediatamente para sntomas nuevos o que empeoran . Paciente aconseja posteriores con el PCP en 1-2 church. Si el paciente no tiene ninguna de atencin primaria pueden seguir con [facility] [address] [place] [address] o [facility] [address] [place] [id number] REBA LUONG PA-C Dec 02, 2018 05:49
[2018-12-02 05:51] VITALS: BP 132/64; PULSE 84; RESP 17
== END 2018-12-02 05:51 | disposition home or self-care (01) ==
LOC: FTE 02:46
DX: H61.22 Impacted cerumen, left ear (principal)
CPT/HCPCS: 69209; Z7610

== ENCOUNTER 2019-01-21 05:00 | Inpatient (IN) | payer MEDICAID ==
[~2019-01-21] VITALS: Ht 152.4 cm; Wt 74.9 kg
[2019-01-21] MEDS ORDERED: LACTATED RINGER'S 1,000 ML IV SCH (05:25)
[2019-01-21] MEDS ORDERED: LACTATED RINGER'S 1,000 ML IV PRN (05:25)
[2019-01-21 05:28] VITALS: BP 144/70; PULSE 100; RESP 18
[2019-01-21] MEDS ORDERED: AMPICILLIN 2 GM/NS (PMX) 100 ML ONE (05:28)
[2019-01-21] MEDS ORDERED: AMPICILLIN 2 GM/NS (PMX) 100 ML IV ONE (05:30)
[2019-01-21] MEDS ORDERED: IBUPROFEN 600 MG TAB PO PRN (05:30)
[2019-01-21] MEDS ORDERED: BUTORPHANOL 2 MG INJ IV PRN ×2 (05:30)
[2019-01-21] MEDS ORDERED: LIDOCAINE 1% (MPF) 30 ML INJ INJ PRN (05:30)
[2019-01-21] MEDS ORDERED: MISOPROSTOL 200 MCG TAB PR PRN ×2 (05:30→07:00)
[2019-01-21] MEDS ORDERED: OXYTOCIN 30 UNITS/LR 500 ML IV SCH ×2 (05:30)
[2019-01-21] MEDS ORDERED: MINERAL OIL LIGHT 10 ML VIAL TOP ONE (05:30)
[2019-01-21] MEDS ORDERED: METHYLERGONOVINE 0.2 MG INJ IM PRN ×2 (05:30→07:00)
[2019-01-21] MEDS ORDERED: OXYTOCIN 30 UNITS/LR 500 ML IV PRN ×2 (05:30→07:00)
[2019-01-21] MEDS ORDERED: CARBOPROST 250 MCG INJ IM PRN ×2 (05:30→07:00)
[2019-01-21] MEDS ORDERED: HYDROCODONE/APAP (5/325) TAB PO PRN (07:00)
[2019-01-21] MEDS ORDERED: BENZOCAINE 20% 56 ML SPRAY TOP PRN (07:00)
[2019-01-21 08:00] VITALS: BP 123/66; RESP 18
[2019-01-21] MEDS ORDERED: AMPICILLIN 1 GM/NS (PMX) 50 ML IV SCH (09:30)
[2019-01-21] MEDS: LACTATED RINGER'S 1,000 ML IV* SCH ×3 (11:42→23:38)
[2019-01-21] MEDS: IBUPROFEN 600 MG TAB PO SCH ×3 (12:45→23:41)
[2019-01-21 15:39] VITALS: BP 111/56; PULSE 72; RESP 16
[2019-01-21] MEDS: LANOLIN HPA 1 PKT TOP PRN (17:15)
[2019-01-21 19:45] VITALS: BP 114/57; PULSE 65; RESP 20
[2019-01-21] MEDS: OXYTOCIN 30 UNITS/LR 500 ML IV SCH ×2 (23:37→23:38)
[2019-01-22 04:21] VITALS: BP 109/64; PULSE 69; RESP 20
[2019-01-22] MEDS: IBUPROFEN 600 MG TAB PO SCH ×3 (05:53→18:09)
[2019-01-22] MEDS: LACTATED RINGER'S 1,000 ML IV* SCH (06:57)
[2019-01-22 08:30] VITALS: BP 118/72; PULSE 82; RESP 18
[2019-01-22] MEDS ORDERED: MAGNESIUM HYDROXIDE 30ML CUP PO ONE (09:00)
[2019-01-22] MEDS ORDERED: BISACODYL 10 MG SUPP PR ONE (13:30)
[2019-01-22 15:35] VITALS: BP 106/59; PULSE 64; RESP 18
[2019-01-22 20:00] VITALS: BP 110/59; PULSE 70; RESP 18
[2019-01-23] MEDS: IBUPROFEN 600 MG TAB PO SCH ×3 (00:18→11:27)
[2019-01-23 04:00] VITALS: BP 114/59; PULSE 59; RESP 18
[2019-01-23 08:00] VITALS: BP 107/59; PULSE 53; RESP 18
[2019-01-23] MEDS ORDERED: DIPHTH/TET/ACEL PERTUSS (ADULT) 0.5 ML VIAL IM* ONE (09:00)
[2019-01-23] MEDS: LANOLIN HPA 1 PKT TOP PRN (11:27)
== END 2019-01-23 15:17 | disposition home or self-care (01) | DRG 807 ==
LOC: L-D 05:00 → OBT 05:00 → L-D 05:15 → PP1 08:21
PROVIDERS: ADMIT Obstetrics & Gynecology; ATTEND Obstetrics & Gynecology
PROC: 10E0XZZ Delivery of Products of Conception, External Approach (ICD-10-PCS; principal; 2019-01-21)
PROC: 0KQM0ZZ Repair Perineum Muscle, Open Approach (ICD-10-PCS; 2019-01-21)
PROC: 3E033VJ Introduction of Other Hormone into Peripheral Vein, Percutaneous Approach (ICD-10-PCS; 2019-01-21)
DX: O24.429 Gestational diabetes mellitus in childbirth, unspecified control (principal); O70.1 Second degree perineal laceration during delivery; Z3A.39 39 weeks gestation of pregnancy; Z37.0 Single live birth
CPT/HCPCS: 80053; 81001; 84560; 85025; 85610; 85730; 86592; 86850; 86900; 86901; 87340; G0463; J0290; J2590; J7120